=== PATIENT | male | born 1990 ===

== ENCOUNTER 2018-08-10 20:53 | Emergency (ER) | payer OTHER ==
--- NOTE | 2018-08-10 20:59 | EDPHY ---
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 psh- eye surgeries, compound fx of left ankle with repair - Social History Smoking Status: Never smoked Time Seen by Provider: 08/10/18 20:58 HPI/ROS: HPI CHIEF COMPLAINT: Alcohol Intoxication , fall, head trauma HISTORY OF PRESENT ILLNESS: 36-year-old male, presents emergency room highly intoxicated alcohol. He arrives with police escort and required 4 point restraints in route by EMS for some agitated behavior. Upon arrival to the emergency room is, cooperative. He is asking to urinate. Apparently got highly intoxicated this evening and fell and had head strike. He has obvious facial swelling. He is intoxicated slurring speech. Denies any other injuries. Unclear exactly how much she drank but reported large amount of alcohol. Past Medical History: Denies medical history Past Surgical History: Denies surgical history Social History: Alcohol this evening large amount Family History: Noncontributory ROS REVIEW OF SYSTEMS: 10 Systems were reviewed and negative with the exception of the elements mentioned in the history of present illness. Exam Constitutional Intoxicated, triage nursing summary reviewed, vital signs reviewed, Sleepy, smells of alcohol Eyes normal conjunctivae and sclera, horizontal beating nystagmus consistent acute alcohol intoxication, otherwise pupils equal and react to light HENT normal inspection, atraumatic, moist mucus membranes, no epistaxis, neck supple/ no meningismus, no raccoon eyes. Respiratory clear to auscultation bilaterally, normal breath sounds, no respiratory distress, no wheezing. Cardiovascular rate normal, regular rhythm, no murmur, no edema, distal pulses normal. Gastrointestinal soft, non-tender, no rebound, no guarding, normal bowel sounds, no distension, no pulsatile mass. Genitourinary no CVA tenderness. Musculoskeletal no midline vertebral tenderness, full range of motion, no calf swelling, no tenderness of extremities, no meningismus, good pulses, neurovascularly intact. Skin pink, warm, & dry, no rash, skin atraumatic. Neurologic sleepy, intoxicated with alcohol,, alert and oriented x 3, AAOx3, moves all 4 extremities equally, motor intact, sensory intact, CN II-XII intact , , normal vision, normal speech. Psychiatric normal mood/affect. Heme/Lymph/Immune no lymphadenopathy. Differential Diagnosis: Includes but is not limited to in a particular order acute alcohol intoxication, alcohol abuse, dehydration, electrolyte abnormality , nausea vomiting from acute alcohol intoxication Medical Decision Making: Plan for this patient CT scan head without contrast for trauma given alcohol intoxication, CT scan cervical spine for trauma given alcohol intoxication and fall, check breath alcohol level re-evaluate. Re-evaluation: [id number]": Patient is acutely agitated and aggressive with staff. He required 10 mg IM Haldol 2 mg IM Ativan. Patient refused breath alcohol. Patient's breath alcohol is 263 with a week breath. Patient did require 10 mg IM Haldol and 2 mg IM Ativan for sedation. This was due to aggressive behavior. CT scan head and neck are pending at this time. Patient signed over at 11:00 p.m. Shift change to Dr. Evans. Patient will need to sober. He is on arc hold. CT scan head without contrast and CT cervical spine without contrast negative for acute traumatic injury. Called to me by Dr. Awan ([facility]) 2:00 a.m.- Patient has sobered and is able to walk without difficulty. He will be [facility] to [facility]. (Denisse Evans) Constitutional: Initial Vital Signs Temperature (C) 36.6 C 08/10/18 21:00 Heart Rate 75 08/10/18 21:00 Respiratory Rate 18 08/10/18 21:00 Blood Pressure 135/94 H 08/10/18 21:00 O2 Sat (%) 93 08/10/18 21:00 O2 Delivery Mode Room Air Allergies/Adverse Reactions: No Known Allergies Allergy (Verified 10/07/17 12:33) Home Medications: Medication Instructions Recorded traZODone [traZODONE 100MG (*)] 100 mg PO HS 03/05/15 Sertraline HCl [Zoloft 50mg (*)] 04/09/16 Metformin 08/26/16 Ritalin 08/26/16 Levemir 10/07/17 - Diagnostics Imaging Results: Imaging Impressions Cervical Spine CT 08/10/18 20:55 Impression: 1. Negative noncontrast CT of the head with no intracranial posttraumatic sequela identified. 2. See above report for additional findings. CT Cervical Spine Without Contrast History: Trauma. Technique: Multislice helical CT through the cervical spine without contrast from the skull base to T1. Soft tissue and bone evaluation is performed. Sagittal and coronal reconstructions are obtained and reviewed. Dose reduction techniques were utilized. Findings: Cervical alignment is anatomic. No fracture or dislocation is identified. The relationship between skull base and C1 is normal. The C1-C2 articulation is normal. The odontoid process is normal. Disk spaces maintain their normal height. The cervical thoracic junction is normal. Soft tissue window evaluation does not show evidence of epidural or prevertebral hematoma. Impression: Cervical spine negative for fracture. Results called and discussed with Earl Corbett MD on 08/10/2018 at 22:25. Head CT 08/10/18 20:55 Impression: 1. Negative noncontrast CT of the head with no intracranial posttraumatic sequela identified. 2. See above report for additional findings. CT Cervical Spine Without Contrast History: Trauma. Technique: Multislice helical CT through the cervical spine without contrast from the skull base to T1. Soft tissue and bone evaluation is performed. Sagittal and coronal reconstructions are obtained and reviewed. Dose reduction techniques were utilized. Findings: Cervical alignment is anatomic. No fracture or dislocation is identified. The relationship between skull base and C1 is normal. The C1-C2 articulation is normal. The odontoid process is normal. Disk spaces maintain their normal height. The cervical thoracic junction is normal. Soft tissue window evaluation does not show evidence of epidural or prevertebral hematoma. Impression: Cervical spine negative for fracture. Results called and discussed with Earl Corbett MD on 08/10/2018 at 22:25. - Data Points Medications Given: Discontinued Medications Haloperidol Lactate (Haldol Injection) 10 mg IM EDNOW ONE Stop: 08/10/18 21:37 Last Admin: 08/10/18 21:50 Dose: 10 mg Lorazepam (Ativan Injection) 2 mg IM EDNOW ONE Stop: 08/10/18 22:10 Last Admin: 08/10/18 22:10 Dose: 2 mg Departure - Departure Clinical Impression: Alcohol intoxication Qualifiers: Complication of substance-induced condition: uncomplicated Qualified Code(s): F10.920 - Alcohol use, unspecified with intoxication, uncomplicated Facial contusion Qualifiers: Encounter type: initial encounter Qualified Code(s): S00.83XA - Contusion of other part of head, initial encounter Condition: Fair Referrals: Tiara Wilkes MD [Primary Care Provider] - As per Instructions
[2018-08-10] MEDS ORDERED: HALOPERIDOL LACT 5 MG/ML INJ ONE (21:29)
[2018-08-10] MEDS ORDERED: HALOPERIDOL LACT 5 MG/ML INJ IM ONE (21:36)
[2018-08-10] MEDS ORDERED: LORazepam 2 MG/ML INJ ONE (22:03)
[2018-08-10] MEDS ORDERED: LORazepam 2 MG/ML INJ IM PRN (22:08)
[2018-08-10] MEDS ORDERED: LORazepam 2 MG/ML INJ IM ONE (22:09)
[2018-08-11] MEDS ORDERED: IBUPROFEN 800 MG TAB PO ONE ×2 (02:03→02:04)
[2018-08-11 02:17] VITALS: BP 134/70
== END 2018-08-11 02:15 | disposition home or self-care (01) ==
LOC: EDUNIT# → EDBD → EDUNIT# 20:53
DX: S00.83XA Contusion of other part of head, initial encounter (principal); F10.129 Alcohol abuse with intoxication, unspecified; W01.198A Fall on same level from slipping, tripping and stumbling with subsequent striking against other object, initial encounter; Y90.8 Blood alcohol level of 240 mg/100 ml or more; Y92.481 Parking lot as the place of occurrence of the external cause
CPT/HCPCS: 70450; 72125; 96372; 99285; J1630; J2060